=== PATIENT | female | born 1990 | race Caucasian/White ===

== ENCOUNTER → 2017-07-13 | Outpatient (CLI) | payer BC ==
[~2017-07-13] MED LIST: ACET325T38 PO; AMOX500C2 PO; CALC-656 PO; CALC-867 PO; CALC500T7 PO; CEFD300C3 PO; CYCL5TAB PO; DCS100C PO; DOCU100C37 PO; FERR-84 PO; FERR240T9 PO; HYDR-34 PO; IBP800T PO; IBUP-1780 PO; LVT.025T PO; NAPR-243 PO; NITR-65 PO; NITR100C44 PO; OMEP-10 PO; ONDA-42 SL; OXYC-465 PO; OXYC1TAB12 PO; PEDI1TAB29 PO; PNV#1COM11 PO; PREN-148 PO; SULF1TAB38 PO; TRM50T PO; [UNRECOGNIZED DRUG - OTHER] PO; birth control
[2017-07-13 16:17] LABS: BASOPHILS % (AUTO) 0 % (0-10); EOSINOPHILS # (AUTO) 0.5 10^3/uL (0.0-0.3); EOSINOPHILS % (AUTO) 6 % (0-10); LYMPHOCYTES # (AUTO) 1.8 X 10^3 (1.0-4.0); LYMPHOCYTES % (AUTO) 19 % (12-44); MEAN CORPUSCULAR HEMOGLOBIN 26 PG (25-34); MEAN CORPUSCULAR HGB CONC 33 G/DL (32-36); MEAN CORPUSCULAR VOLUME 81 FL (80-99); MEAN PLATELET VOLUME 10.7 FL (7.4-10.4); MONOCYTES # (AUTO) 0.5 X 10^3 (0.0-1.0); MONOCYTES % (AUTO) 5 % (0-12); NEUTROPHILS # (AUTO) 6.6 X 10^3 (1.8-7.8); NEUTROPHILS % (AUTO) 71 % (42-75); PLATELET COUNT 278 10^3/uL (130-400); RED BLOOD COUNT 5.03 10^6/uL (4.35-5.85); RED CELL DISTRIBUTION WIDTH 14.4 % (10.0-14.5); WHITE BLOOD COUNT 9.4 10^3/uL (4.3-11.0)
[2017-07-13 16:38] LABS: ERYTHROCYTE SEDIMENTATION RATE 10 MM/HR (0-20)
[2017-07-13 16:39] LABS: ALANINE AMINOTRANSFERASE 16 U/L (0-55); ANION GAP 8 MMOL/L (5-14); ASPARTATE AMINO TRANSFERASE 13 U/L (5-34); BILIRUBIN,TOTAL 0.4 MG/DL (0.1-1.0); BLOOD UREA NITROGEN 11 MG/DL (7-18); BUN/CREATININE RATIO 15; CALCIUM 9.1 MG/DL (8.5-10.1); CARBON DIOXIDE 23 MMOL/L (21-32); CHLORIDE 105 MMOL/L (98-107); CREATININE SERUM 0.73 MG/DL (0.60-1.30); GFR ESTIMATED > 60; GLUCOSE 117 MG/DL (70-105); POTASSIUM 3.7 MMOL/L (3.6-5.0); SODIUM 136 MMOL/L (135-145); TOTAL PROTEIN 7.4 GM/DL (6.4-8.2)
[2017-07-13 17:00] LABS: THYROID STIMULATING HORMONE 2.46 UIU/ML (0.35-4.94)
[2017-07-15 08:07] LABS: FOLLICLE STIMULATING HORMONE 2.9 mIU/mL
== END ==
LOC: LAB 15:54
PROVIDERS: ATTEND Internal Medicine
DX: R53.83 Other fatigue (principal); D64.9 Anemia, unspecified; R73.9 Hyperglycemia, unspecified; N91.2 Amenorrhea, unspecified; E03.9 Hypothyroidism, unspecified
CPT/HCPCS: 36415; 80053; 82672; 82728; 83001; 83540; 84439; 84443; 84703; 85025; 85652

== ENCOUNTER → 2017-07-23 | Outpatient (CLI) | payer BC | LOC: LAB 07:37 | PROVIDERS: ATTEND Internal Medicine | DX: R73.9 Hyperglycemia, unspecified (principal) | CPT/HCPCS: 36415; 83036 ==

== ENCOUNTER 2017-10-26 13:00 | Outpatient (CLI) | payer BC ==
[~2017-10-26] VITALS: Ht 160 cm; Wt 84.9 kg
== END 2017-10-26 13:34 ==
LOC: PREOP 13:00
PROVIDERS: ATTEND Obstetrics & Gynecology
DX: Z01.818 Encounter for other preprocedural examination (principal); N93.8 Other specified abnormal uterine and vaginal bleeding; N85.9 Noninflammatory disorder of uterus, unspecified; N87.0 Mild cervical dysplasia; D64.9 Anemia, unspecified

== ENCOUNTER 2017-10-28 10:59 | Day surgery (SDC) | payer BC ==
[~2017-10-28] VITALS: Ht 160 cm; Wt 84.9 kg
--- OUTSIDE RECORDS SUMMARY | 2017-10-28 11:06 | XMS REPORT | Continuity of Care Document ---
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 Date/Time Discharge Status Pt. Type Provider Facility Loc./Unit Complaint [id number] 10/21/2017 05:28:00 10/21/2017 23:59:59 CLS Outpatient SARITA TOLBERT, NOMAN [facility] PREOP DUB,UTERINE MASS [id number] 08/06/2017 10:20:00 08/06/2017 23:59:59 CLS Outpatient MIKE KASEY ORTIZ [facility] RAD M63.20 BREAST MASS [id number] 07/23/2017 07:37:00 07/23/2017 23:59:59 CLS Outpatient CEE ORTIZ KASEY [facility] LAB R73.9 [id number] 07/13/2017 15:54:00 07/13/2017 23:59:59 CLS Outpatient MIKE KASEY [facility] LAB R53.83,D64.9,R73.9,N91.2, E03.9 [id number] 09/10/2016 05:30:00 09/12/2016 12:30:00 DIS Inpatient NOMAN STEIN MD [facility] LDRP ABDOMINAL PAIN, BACK LABOR [id number] 09/04/2016 23:19:00 09/05/2016 15:45:00 DIS Outpatient NOMAN STEIN MD [facility] WSo CONTRACTIONS [id number] 09/04/2016 11:09:00 09/04/2016 23:59:59 CLS Outpatient NOMAN STEIN MD [facility] LABT MILD TO MODERATE PREECLAMPSIA,THIRD TRIMESTER [id number] 09/01/2016 01:15:00 09/01/2016 04:33:00 DIS Outpatient NOMAN STEIN MD [facility] WSo AB PAIN [id number] 08/28/2016 14:06:00 08/28/2016 23:59:59 CLS Outpatient NOMAN STEIN MD [facility] LABNPT OTHER ABNORMAL FINDINGS ON SCREENING [id number] 07/20/2016 22:12:00 07/21/2016 10:12:00 DIS Outpatient NOMAN STEIN MD [facility] STOMACH PAIN [id number] 06/09/2016 14:45:00 06/09/2016 15:33:00 DIS Outpatient NOMAN STEIN MD [facility] ABDOMINAL PAIN [id number] 03/25/2016 13:02:00 03/25/2016 17:35:00 DIS Outpatient NOMAN STEIN MD [facility] WSo IV HYDRATION [id number] 06/01/2015 21:11:00 06/02/2015 06:57:00 DIS Outpatient SUSHANT TAYLOR APRN [facility] SLEEP OBSTRUCTIVE SLEEP APNEA [id number] 05/07/2015 13:37:00 05/07/2015 14:10:00 DIS Outpatient RENÉ CARBONE SIGNAL APPRENTICE [facility] SLEEP OBSERVED APNEA, SNORING, EDS [id number] 04/19/2015 16:13:00 04/22/2015 18:20:00 DIS Inpatient NOMAN STEIN MD [facility] LD PREECLAMPSIA,C- SECTION [id number] 04/16/2015 16:50:00 04/16/2015 23:59:59 CLS Outpatient NOMAN STEIN MD [facility] LABNPT MILD OR UNSPECIFIED PRE-CLAMPSIA [id number] 04/09/2015 13:50:00 04/09/2015 17:45:00 DIS Outpatient NOMAN STEIN MD [facility] C/O IBARRA,SWELLING [id number] 03/12/2015 20:48:00 03/13/2015 08:42:00 DIS Inpatient NOMAN STEIN MD [facility] LDRP CONTRACTIONS [id number] 02/07/2015 16:49:00 02/07/2015 18:12:00 DIS Outpatient NOMAN STEIN MD [facility] WSo C/O ABD PAIN [id number] 09/19/2014 18:13:00 09/19/2014 20:24:00 DIS Emergency PAULA MULLEN DO [facility] ER VOMITING, PAIN AT 5 WEEKS [id number] 04/06/2013 22:13:00 04/07/2013 02:33:00 DIS Emergency PAULA MULLEN DO [facility] ER R LEG LAC [id number] 10/28/2017 13:00:00 SIMI STEIN MD, NOMAN [facility] DUB,UTERINE MASS [id number] 09/17/2016 08:48:00 Document Registration [id number] 09/17/2016 08:48:00 Document Registration [id number] 09/17/2016 08:48:00 Document Registration [id number] 09/17/2016 08:48:00 Document Registration [id number] 09/17/2016 08:48:00 Document Registration [id number] 11/12/2012 10:58:00 Document Registration [id number] 11/10/2012 08:22:00 Document Registration [id number] 10/29/2012 17:15:00 Document Registration [id number] 08/18/2010 02:01:00 Document Registration [id number] 05/21/2010 15:59:00 Document Registration [id number] 08/01/2009 10:09:00 Document Registration
[2017-10-28 11:10] VITALS: BP 127/90
[2017-10-28] MEDS ORDERED: LACTATED RINGERS 1,000 ML IV PRN ×2 (11:12→11:15)
[2017-10-28] MEDS ORDERED: NS IV ONE (11:15)
[2017-10-28] MEDS ORDERED: CEFAZOLIN IV ONE (11:15)
[2017-10-28] MEDS ORDERED: SEVOFLURANE (ULTANE) 15 ML INHAL SOLN ONE ×5 (11:45→14:07)
[2017-10-28] MEDS ORDERED: LACTATED RINGERS 1,000 ML IV ONE (11:45)
[2017-10-28] MEDS ORDERED: LIDOCAINE PF 2% 5 ML (XYLOCAINE) VIAL ONE (11:45)
[2017-10-28] MEDS ORDERED: proPOfol 200 MG/20 ML (DIPRIVAN) VIAL IV ONE (11:45)
[2017-10-28] MEDS ORDERED: HURRICAINE EXT TUBE (BENZOCAINE) ONE (11:45)
[2017-10-28] MEDS ORDERED: DEXAMETHASONE 10 MG/ML (DECADRON) 1 ML VIAL ONE (11:45)
[2017-10-28] MEDS ORDERED: fentaNYL INJECTION 100 MCG/2 ML AMP ONE ×2 (11:46→12:43)
[2017-10-28] MEDS ORDERED: MIDAZOLAM 2 MG/2 ML (VERSED) VIAL ONE (11:46)
[2017-10-28] MEDS ORDERED: ATRACURIUM 50 MG/5 ML (TRACRIUM) IV ONE ×2 (11:55→13:40)
[2017-10-28] MEDS ORDERED: MIDAZOLAM 2 MG/2 ML (VERSED) VIAL IV ONE (12:00)
[2017-10-28 12:08] LABS: BASOPHILS % (AUTO) 1 % (0-10); EOSINOPHILS # (AUTO) 0.4 10^3/uL (0.0-0.3); EOSINOPHILS % (AUTO) 7 % (0-10); HEMATOCRIT 38 % (35-52); HEMOGLOBIN 13.1 G/DL (11.5-16.0); LYMPHOCYTES # (AUTO) 1.5 X 10^3 (1.0-4.0); LYMPHOCYTES % (AUTO) 27 % (12-44); MEAN CORPUSCULAR HEMOGLOBIN 28 PG (25-34); MEAN CORPUSCULAR HGB CONC 34 G/DL (32-36); MEAN CORPUSCULAR VOLUME 81 FL (80-99); MEAN PLATELET VOLUME 10.5 FL (7.4-10.4); MONOCYTES # (AUTO) 0.3 X 10^3 (0.0-1.0); MONOCYTES % (AUTO) 5 % (0-12); NEUTROPHILS # (AUTO) 3.4 X 10^3 (1.8-7.8); NEUTROPHILS % (AUTO) 61 % (42-75); PLATELET COUNT 253 10^3/uL (130-400); RED BLOOD COUNT 4.69 10^6/uL (4.35-5.85); RED CELL DISTRIBUTION WIDTH 13.3 % (10.0-14.5); WHITE BLOOD COUNT 5.6 10^3/uL (4.3-11.0)
[2017-10-28] MEDS ORDERED: BUPIVACAINE 0.25% 30 ML (SENSORCAINE) VIAL ONE (12:15)
--- NOTE | 2017-10-28 12:26 | Progress Note-Pre Operative ---
Pre-Operative Progress Note H&P Reviewed The H&P was reviewed, patient examined and no changes noted. Date Seen by Provider: Oct 28, 2017 Time Seen by Provider: 12:26 Date H&P Reviewed: Oct 28, 2017 Time H&P Reviewed: 12:26 Pre-Operative Diagnosis: dysfunctional uterine bleeding/menorrhagia/mass/JOSE G-1 NOMAN STEIN MD Oct 28, 2017 12:26 pm
[2017-10-28] MEDS ORDERED: D5 LR IV SOLUTION 1,000 ML IV SCH (12:27)
--- NOTE | 2017-10-28 12:27 | Progress Note-Post Operative ---
Post-Operative Progess Note Surgeon (s)/Sole Sewer Hand (s) Surgeon NOMAN STEIN MD Sole Sewer Hand: Maren Ceja Pre-Operative Diagnosis dysfunctional uterine bleeding/menorrhagia/mass/JOSE G-1 Post-Operative Diagnosis same with pathology pending Procedure & Operative Findings Date of Procedure 10/28/17 Procedure Performed/Findings T LH with bilateral salpingectomies Anesthesia Type GETA Estimated Blood Loss Estimated blood loss (mL): minimal Specimens/Packing Specimens Removed uterus with the fallopian tubes Packing: NOMAN Severino MD Oct 28, 2017 12:27
[2017-10-28] MEDS ORDERED: KETOROLAC 30 MG/ML VIAL IVP SCH (12:30)
[2017-10-28] MEDS ORDERED: MEPERIDINE (DEMEROL) INJ 100 MG/ML IM PRN (12:30)
[2017-10-28] MEDS ORDERED: IBUP-1780 PO (12:30)
[2017-10-28] MEDS ORDERED: OXYC-465 PO (12:30)
[2017-10-28] MEDS ORDERED: ONDANSETRON 4 MG/2 ML (SDV) Z0FRAN IVP PRN ×2 (12:30→14:30)
[2017-10-28] MEDS ORDERED: PROMETHAZINE INJ 25 MG/ML (PHENERGAN) AMP IM PRN (12:30)
[2017-10-28] MEDS ORDERED: DOCU-143 PO (12:30)
[2017-10-28] MEDS ORDERED: BENZOCAINE/MENTHOL (DERMOPLAST) 56 ML CAN TP PRN (12:30)
--- NOTE | 2017-10-28 12:33 | Discharge Instructions ---
Discharge Instructions Discharge Medications New, Converted or Re-Newed RX: RX on Chart Patient Instructions Patient Instructions: as directed Return to The Hospital For: as directed Activity & Diet Discharge Diet: No Restrictions Activity as Tolerated: No Orders-Post D/C & Referrals Follow Up Appt: return to clinic ThursdayOctober 30, 2017 at 930 a.m. for staple removal Call to make follow up appt. for patient in 4 weeks. Activity: Rest for 24 hours, than as tolerated. Wound Care: May remove Band-Aid tomorrow. Replace as desired. Keep incisions clean and dry. Wash daily with soap and water. Please call in RX to patient pharmacy. Diet: As tolerated-Clear Liquids only if nauseated. Tomorrow, may shower or tub bathe as desired. No driving for 24 hours, no alcoholic beverages for 24 hours, and nothing per vagina (no tampons, douching, or intercourse) for 8 weeks. Patient to return to the clinic as soon as possible for: Temperature greater than 101F, Severe Pain, Foul discharge from incision or vagina, Excessive Bleeding (more than a period). NOMAN STEIN MD Oct 28, 2017 12:33 pm
[2017-10-28] MEDS: morphine INJ 10 MG/ML 1ML (SYR OR VIAL) IVP PRN ×2 (14:05→14:15)
[2017-10-28] MEDS ORDERED: KETOROLAC 30 MG/ML VIAL ONE (14:05)
[2017-10-28] MEDS ORDERED: NEOSTIGMINE (BLOXIVERZ ) 1 MG/1ML 10 ML VIAL ONE (14:07)
[2017-10-28] MEDS ORDERED: WATER (STERILE) FOR INJECTION 0 ML ONE (14:07)
[2017-10-28] MEDS ORDERED: ESTROGENS CONJ IV 25 MG/5 ML (PREMARIN) VIAL ONE (14:07)
[2017-10-28] MEDS ORDERED: GLYCOPYRROLATE 0.2 MG/ML (ROBINUL) 2 ML VIAL ONE (14:07)
[2017-10-28] MEDS ORDERED: HYDROmorphone (DILAUDID) 2 MG/ML VIAL IVP PRN (14:30)
[2017-10-28 15:00] VITALS: BP 113/72
[2017-10-28 17:10] VITALS: BP 104/72
[2017-10-28] MEDS: oxyCODONE/APAP 10/325MG (PERCOCET 10) TABLET PO PRN ×2 (17:40→22:55)
[2017-10-28 20:00] VITALS: BP 116/79
[2017-10-28] MEDS: KETOROLAC 30 MG/ML VIAL IVP SCH (20:28)
--- NOTE | 2017-10-28 23:29 | OPERATIVE REPORT ---
DATE OF SERVICE: 10/28/2017 PREOPERATIVE DIAGNOSES: Dysfunctional uterine bleeding, intrauterine mass and history of recurrent cervical intraepithelial neoplasia 1. POSTOPERATIVE DIAGNOSES: Dysfunctional uterine bleeding, intrauterine mass and history of recurrent cervical intraepithelial neoplasia 1. OPERATIVE PROCEDURE: Total laparoscopic hysterectomy with bilateral salpingectomies. OPERATIVE DESCRIPTION: With the patient in the supine position under satisfactory general anesthesia, she was repositioned in dorsal lithotomy position in the [facility] and prepped and draped in the usual fashion for abdominal and vaginal surgery. Weighted speculum placed in the posterior fornix of the vagina. Cervix exposed and grasped anteriorly with single tooth tenaculum. The uterus was sounded to 11 cm with a uterine sound. The cervix was then serially dilated with Neil dilators to accommodate a Leia II manipulator, which was placed using a 6 mm x 8 cm uterine probe and a 30 mm colpotomy ring. Sutures of #1 Vicryl were placed at 3 o'clock and 9 o'clock positions of the cervix to affix the specimen to the manipulator. Rosario catheter was placed in the urinary bladder at this point. The patient was brought in low dorsal lithotomy position. A 12 mm incision was made 2.5 to 3 cm superior to the umbilicus. Veress needle was placed through that incision. Correct placement confirmed with the water drop test and the abdomen was insufflated with 2.4 liters of carbon dioxide. The Veress needle was removed and a 12 mm Optiview laparoscopic port placed and then under direct vision, ports of 8 mm were placed through incisions, a 9 size cm lateral to the umbilicus on each side at the level of the umbilicus. The patient was placed in Trendelenburg allowing the bowel to spill out of the pelvis. The uterus was examined and it was quite mottled in appearance consistent with adenomyosis. Both fallopian tubes showed evidence of remote tubal sterilization. The ovaries were normal with a follicular/corpus luteal cyst on the right ovary. The appendix was identified. It was a normal vermiform appendix. Laparoscope was brought back to the pelvis, the decision was made to proceed with the intended procedure being total laparoscopic hysterectomy with bilateral salpingectomies. The right fallopian tube was grasped and elevated. The mesosalpinx was clamped, cauterized and divided with the vessel sealer. This was continued stepwise over to the uteroovarian pedicle which was then clamped, cauterized and divided, including division of the round ligament and then down the broad ligament and then the cardinal ligament on the right. Same procedure was performed on the left, allowing for conservation both ovaries and removal of both fallopian tubes. The vessel sealer was now replaced with a monopolar shear. The anterior lower uterine segment was exposed. The bladder was carefully dissected down off the lower uterine segment. The patient had two C-sections, but the bladder was clear of the scar. With the bladder down off the cervix and the anterior vaginal wall exposed at the junction with the cervix, a colpotomy incision was started at 12:00 position onto the colpotomy ring. That incision was continued circumferentially until the entire colpotomy ring was exposed and the uterus with the tubes still attached on both sides was extracted through the vagina. The vaginal cuff was closed with a running suture of V-Loc sreedhar suture starting from the right side of the pelvis and using that suture initially to support the ovary from the pedicle of the round ligament and then the closure was continued across the pedicle of the cardinal ligament and then the vaginal cuff itself was closed starting across the angle to the midportion of the cuff. A second suture was used to start from the left angle on both sides and ensuring inclusion of the uterine vessel pedicles in the closure. The vaginal cuff was closed completely with good reapproximation and good hemostasis. The pelvis was examined for hemostasis. That being complete with no abnormal pathology, the procedure was terminated. The operative instruments were removed under direct vision as were the ports. The abdomen was evacuated insufflating gas in the process of removing the ports. The patient was uneventfully awakened from her general anesthesia and transferred to the recovery room in stable condition after closing the skin incisions with randi and the fascia at the umbilical incision with a [id number] suture of #2-0 Vicryl. The vagina had been examined by replacing the speculum inside and seen that the vaginal cuff was completely reapproximated and completely hemostatic. Sponge and needle counts were correct at the end of the procedure. Estimated blood loss was minimal. The patient tolerated the procedure well. Job ID: [id number] DocumentID: [id number] Dictated Date: 10/28/2017 13:51:55 Sql Analyst Date: 10/28/2017 23:28:25 Dictated By: NOMAN STEIN MD
[2017-10-29 00:30] VITALS: BP 113/64
[2017-10-29] MEDS: KETOROLAC 30 MG/ML VIAL IVP SCH ×2 (02:10→09:09)
[2017-10-29 04:50] VITALS: BP 96/58
--- NOTE | 2017-10-29 07:50 | Progress Note-Standard ---
Standard Progress Note Progress Notes/Assess & Plan Date Seen by Provider: Oct 29, 2017 Time Seen by Provider: 07:49 Progress/Assessment & Plan this patient is without complaint. She is ambulating, voiding, tolerating by mouth well, has good pain control. Patient denies chest pain, denies shortness of breath, denies nausea vomiting, denies headache. Patient is requesting discharge home. Vital Signs Date Time Temp Pulse Resp B/P (MAP) Pulse Ox O2 Delivery O2 Flow Rate FiO2 10/29/17 04:50 98.0 61 16 96/58 (71) 97 10/29/17 00:30 99.0 90 18 113/64 (80) 95 10/28/17 20:00 98.2 92 18 116/79 (91) 97 Room Air 10/28/17 17:10 99.4 81 18 104/72 (83) 100 Room Air 10/28/17 15:00 96.8 62 16 113/72 (86) 100 Room Air 10/28/17 11:10 98.1 79 18 127/90 (102) 97 I & O 10/29/17 07:00 Intake Total 1050 ml Output Total 750 ml Balance 300 ml vital signs are stable. Patient is afebrile. Abdomen is benign. Bowel sounds are present in all 4 quadrants. Extremities show clubbing cyanosis. There is no Homans sign. Assessment and plan postoperative day number 1 doing well plan is for discharge home with follow-up in clinic Final Diagnosis dysfunctional uterine bleeding/JOSE G-1 NOMAN STEIN MD Oct 29, 2017 7:50 am
[2017-10-29 08:04] VITALS: BP 99/62
[2017-10-29] MEDS ORDERED: DOCUSATE SODIUM 100 MG (COLACE) CAP PO SCH (09:00)
[2017-10-29 12:15] VITALS: BP 127/83
[2017-10-29] MEDS: oxyCODONE/APAP 10/325MG (PERCOCET 10) TABLET PO PRN (12:46)
--- NOTE | 2017-10-29 13:07 | Anesthesia-General Post-Op ---
General Patient Condition Mental Status/LOC: Same as Preop Cardiovascular: Satisfactory Nausea/Vomiting: Absent Respiratory: Satisfactory Pain: Controlled Complications: Absent Post Op Complications Complications None Follow Up Care/Instructions Patient Instructions None needed. Anesthesia/Patient Condition Patient Condition Patient is doing well, no complaints, stable vital signs, no apparent adverse anesthesia problems. No complications reported per nursing. D/C home per [facility] Criteria: No HIMANSHU MARTÍNEZ CRNA Oct 29, 2017 13:07
[2017-10-29] MEDS ORDERED: IBUPROFEN 800 MG (MOTRIN) TAB PO SCH (14:00)
== END 2017-10-29 13:20 | disposition home or self-care (01) ==
LOC: SDC 10:59 → WS 15:00 → SDC 10-29 13:20
PROVIDERS: ATTEND Obstetrics & Gynecology
DX: N83.8 Other noninflammatory disorders of ovary, fallopian tube and broad ligament (principal); N72 Inflammatory disease of cervix uteri; Z11.2 Encounter for screening for other bacterial diseases; F17.210 Nicotine dependence, cigarettes, uncomplicated; F32.9 Major depressive disorder, single episode, unspecified; F41.9 Anxiety disorder, unspecified; Z88.5 Allergy status to narcotic agent
CPT/HCPCS: 36415; 84703; 85025; 86850; 86900; 86901; 87081

== ENCOUNTER → 2020-01-24 | Outpatient (CLI) | payer MEDICAID ==
[~2020-01-24] MED LIST changes: +DOCU-143 PO
[2020-01-24 10:09] LABS: ALANINE AMINOTRANSFERASE 16 U/L (0-55); ALKALINE PHOSPHATASE 65 U/L (40-136); BILIRUBIN,TOTAL 0.4 MG/DL (0.1-1.0); BUN/CREATININE RATIO 13; CARBON DIOXIDE 23 MMOL/L (21-32); CHLORIDE 108 MMOL/L (98-107); GFR ESTIMATED > 60; GLUCOSE 87 MG/DL (70-105); POTASSIUM 3.9 MMOL/L (3.6-5.0); SODIUM 140 MMOL/L (135-145)
== END ==
LOC: LAB 09:37
PROVIDERS: ATTEND Family Medicine
DX: Z13.1 Encounter for screening for diabetes mellitus (principal)
CPT/HCPCS: 36415; 80053; 83036

== ENCOUNTER 2020-04-27 21:15 | Emergency (ER) | payer MEDICAID ==
[~2020-04-27] VITALS: Ht 160 cm; Wt 86.2 kg
[2020-04-27] MEDS ORDERED: IBUPROFEN 800 MG (MOTRIN) TAB PO ONE (21:30)
[2020-04-27] MEDS ORDERED: ONDANSETRON 4 MG/5 ML ORAL SOLN (ZOFRAN) 5 ML PO ONE (21:30)
[2020-04-27] MEDS ORDERED: ACETAMINOPHEN 500 MG TAB (TYLENOL) PO ONE (21:30)
[2020-04-27] MEDS ORDERED: ONDA8TAB13 PO (21:37)
--- NOTE | 2020-04-27 21:37 | ED Head Injury ---
General Chief Complaint: Trauma-Non Activation Stated Complaint: FELL HIT HEAD Source: patient Exam Limitations: no limitations History of Present Illness Date Seen by Provider: Apr 27, 2020 Time Seen by Provider: 21:31 Initial Comments Fell out of a swing 1/2 hour prior to arrival and hit her head. Positive LOC. c/o headache/nausea. Specifically denies any pain anywhere other than her head. She denies neck pain. Occurred: just prior to arrival Severity: moderate Associated Systoms: Headaches, Nausea/Vomiting Allergies and Home Medications Allergies Coded Allergies: codeine (Verified Adverse Reaction, Severe, VOMITTING, RESP DISTRESS, 10/26/17) lidocaine (Unverified Adverse Reaction, Unknown, nausea, dizziness, tunnel vision, 03/12/15) Home Medications Docusate Sodium 100 Mg Capsule, 100 MG PO BID Prescribed by: NOMAN MATA on 10/28/17 1230 Ibuprofen 800 Mg Tablet, 800 MG PO Q6H PRN for PAIN Prescribed by: NOMAN MATA on 10/28/17 1230 Ondansetron 8 Mg Tab.rapdis, 8 MG PO Q6H PRN for NAUSEA/VOMITING Prescribed by: ENRIQUE ADAMS on 04/27/20 2137 Oxycodone HCl/Acetaminophen 1 Each Tablet, 1-2 TAB PO Q4H PRN for PAIN Prescribed by: NOMAN MATA on 10/28/17 1230 Patient Home Medication List Home Medication List Reviewed: Yes Review of Systems Review of Systems Constitutional: see HPI Eyes: No Symptoms Reported Ears, Nose, Mouth, Throat: no symptoms reported Respiratory: no symptoms reported Cardiovascular: no symptoms reported Gastrointestinal: nausea, vomiting Genitourinary: no symptoms reported Musculoskeletal: no symptoms reported Skin: no symptoms reported Psychiatric/Neurological: Headache Endocrine: No Symptoms Reported Past Mbabtek-Zvgyma-Xpdcqu Hx Patient Social History Type Used: Cigarettes Former Smoker, Quit: Nov 27, 2015 Recent Foreign Travel: No Contact w/Someone Who Travel: No Recent Hopitalizations: No Immunizations Up To Date Tetanus Booster (TDap): Unknown Seasonal Allergies Seasonal Allergies: No Past Medical History Section, Tonsillectomy, Tubal Ligation Asthma, Pneumonia Reproductive Disorders: Yes (DUB, UTERINE MASS , JOSE G I) Female Reproductive Disorders: Menstrual Problems, Endometriosis, Ovarian Cyst 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: Tubal 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 Sexually Transmitted Disease: No HIV/AIDS: No Hypothyroidsim Chronic Ear Infection Loss of Vision: Bilateral Hearing Impairment: Hard of Hearing Anxiety, Depression Adverse Reaction/Blood Tranf: No (N/A) Family Medical History Arthritis Grandparents (Maternal Grandmother Paternal Grandfather) Asthma Grandparents (Paternal Grandmother) Bone cancer Grandparents (Maternal Grandfather) Cardiovascular disease 19 MOTHER (Heart valve that flows both ways.) Grandparents (Maternal Grandfather-Heart valve that flows both ways.) Cataracts Grandparents (Maternal Grandmother) Gammoglubulin anemia Grandparents (Maternal Grandmother) Gastroenteritis Grandparents (Maternal Grandmother) Glaucoma Grandparents (Maternal Grandmother) Headache disorder 19 MOTHER (Migraines) Myocardial infarction Grandparents (Maternal Grandfather) Parkinson's disease Grandparents (Paternal Grandmother) Psychosocial problem 19 MOTHER (Anxiety) Grandparents (Paternal Grandmother-Anxiety) Respiratory disorder Grandparents (Paternal Grandmother) Thyroid disease 19 MOTHER (Hypothyroid) No Family History of: AIDS Abdominal aortic aneurysm [place]'s disease Alcoholism Alzheimer's disease Aphasia Cancer of mouth Colon cancer Completed stroke Congenital disease Congenital heart disease Coronary thrombosis Cystic fibrosis Deafness or hearing loss Dementia Diabetes mellitus Drug abuse Dysphasia Fibrocystic disease of breast Hypercholesterolemia Hypertension Infertility Kidney disease Neoplasm Not obtainable due to adoption Osteoporosis Prostate cancer Seizure disorder Severe allergy Tuberculosis Visual disorder Physical Exam Vital Signs Vital Signs - First Documented 04/27/20 21:25 Temp 36.6 Pulse 100 Resp 18 B/P (MAP) 121/93 (102) Pulse Ox 98 O2 Delivery Room Air Capillary Refill : Height, Weight, BMI Height: 5'3.00" Weight: 187lbs. 2.0oz. 84.203289zm; 33.2 BMI Method:Stated General Appearance: WD/WN, no apparent distress HEENT: PERRL/EOMI, normal ENT inspection, TMs normal, other (no veloz sign or hemotympanum. PERRLA. ) Neck: non-tender, full range of motion, supple; No tender lateral, No tender midline Respiratory: no respiratory distress, no accessory muscle use Gastrointestinal: normal bowel sounds, non tender Extremities: normal range of motion, non-tender Psychiatric: alert, oriented x 3 Crainal Nerves: normal hearing, normal speech Motor/Sensory: no motor deficit, no sensory deficit Skin: normal color, warm/dry [place] Coma Score Best Eye Response: (4) Open Spontaneously Best Verbal Response: (5) Oriented Best Motor Response: (6) Obeys Commands [place] Total: 15 Progress/Results/Core Measures Results/Orders My Orders Orders - ENRIQUE ADAMS APRN Ondansetron Oral Solution (Zofran Oral S (04/27/20 21:30) Acetaminophen Tablet (Tylenol Tablet) (04/27/20 21:30) Ibuprofen Tablet (Motrin Tablet) (04/27/20 21:30) Ct Head/Cervical Spine Wo (04/27/20 21:30) Ondansetron Oral Dissolve Tab (Zofran (04/27/20 21:47) Ondansetron Oral Dissolve Tab (Zofran (04/27/20 21:45) Medications Given in ED Current Medications Medications Dose Ordered Sig/Анна Route Start Time Stop Time Status Last Admin Dose Admin Acetaminophen 1,000 mg ONCE ONCE PO 04/27/20 21:30 04/27/20 21:31 DC 04/27/20 21:52 1,000 MG Ibuprofen 800 mg ONCE ONCE PO 04/27/20 21:30 04/27/20 21:31 DC 04/27/20 21:52 800 MG Vital Signs/I&O 04/27/20 21:25 Temp 36.6 Pulse 100 Resp 18 B/P (MAP) 121/93 (102) Pulse Ox 98 O2 Delivery Room Air Departure Impression Primary Impression: Concussion Qualified Codes: S06.0X1A - Concussion with loss of consciousness of 30 minutes or less, initial encounter Disposition: 01 HOME, SELF-CARE Condition: Stable Departure-Patient Inst. Decision time for Depature: 21:36 Referrals: SHIRLEY KLEIN MD (PCP/Family) Primary Care Physician Patient Instructions: Concussion, Adult (DC) Add. Discharge Instructions: 1. return to er for any concerns 2. Tylenol and motrin for headache which may persist for a few days. Try to limit mentall stimulating activities such as cell phone use, ipad/computer use, TV, reading for the first few days until symptoms improve. Use nausea medication as directed . All discharge instructions reviewed with patient and/or family. Voiced understanding. Scripts Ondansetron (Ondansetron Odt) 8 Mg Tab.rapdis 8 MG PO Q6H PRN for NAUSEA/VOMITING, #14 TAB Prov: ENRIQUE ADAMS APRN 04/27/20 Work/School Note: Work Release Form Date Seen in the Emergency Department: Apr 27, 2020 Return to Work: Apr 30, 2020 ENRIQUE ADAMS APRN Apr 27, 2020 21:37
[2020-04-27] MEDS ORDERED: ONDANSETRON 4 MG (ZOFRAN) ORAL DISSOLVE TAB ONE (21:45)
[2020-04-27] MEDS ORDERED: ONDANSETRON 4 MG (ZOFRAN) ORAL DISSOLVE TAB PO STA (21:47)
--- NOTE | 2020-04-27 22:06 | Diagnostic Imaging Report ---
INDICATION: Fall with injury and head and neck pain. TECHNIQUE: Multiple contiguous axial images were obtained through the brain and cervical spine without the use of intravenous contrast. Sagittal and coronal reformations through the cervical spine were then performed. Auto Exposure Controls were utilized during the CT exam to meet ALARA standards for radiation dose reduction. COMPARISON: There is no prior study for comparison. CT BRAIN FINDINGS: There are no extra-axial fluid collections. No intracranial hemorrhage. No intracranial mass or mass effect. No midline shift. The ventricles are normal in size and position. There are no focal parenchymal abnormalities in the brain. Calvarial windows appear unremarkable. CT CERVICAL SPINE FINDINGS: There is no evidence of cervical spine fracture. There is loss of lordosis with slight change in angulation at C5-C6. This may be positional but ligamentous injury is not entirely excluded. There is no significant disc space narrowing or degenerative change. IMPRESSION: 1. CT brain was unremarkable. 2. CT cervical spine shows no evidence of fracture or subluxation. There is loss of lordosis with slight change in angulation at the C5-C6 level, this may be positional but ligamentous injury is not excluded. Consider follow-up with either MRI or flexion and extension views, if clinical symptoms warrant. Dictated by: Dictated on workstation # [id number]
--- OUTSIDE RECORDS SUMMARY | 2020-04-27 22:11 | XMS REPORT ---
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 [employer] [facility] Moya Okruga [facility] [employer] Address [address] [address] Care Team Providers Care Boat Dispatcher Name Role Phone KASEY MIKE Unavailable Allergies No Information Encounters No Information Medical Equipment No Information Goals No Information Immunizations The data below is from unstructured sources Name Given Type Tetanus Booster (TDap) Unknown Historical Interventions No Information Medications No Information Payers The data below is from unstructured sources Payer Name Policy Number Subscriber Name Relationship [facility] [id number] [place] 05 Step Father [facility] [id number] Olga Borja 01 Self / Same As Patient Plan of Treatment The data below is from unstructured sourcesNo plan of care.No plan of care.No plan of care. Problems The data below is from unstructured sourcesNo Known Problems or Medical conditions. Procedures The data below is from unstructured sourcesNo known history of procedures.No known history of procedures.No known history of procedures. Results The data below is from unstructured sourcesNo Known Relevant Diagnostic Tests, Laboratory Data and/or Discharge Summary. Social History The data below is from unstructured sources History Response Recorde d Date/Time Alcohol Use Occasionally Uses 04/06/13 10:17pm Recreational Drug Use N 04/06/13 10:17pm Recent Foreign Travel N 04/06/13 10:17pm Recent Infectious Disease Exposure N 04/06/13 10:17pm Sexually Transmitted Disease N 04/06/13 10:17pm Vital Signs The data below is from unstructured sources Vital Response Date/Time Temperature (Fahrenheit) 101.2 degre es F (97.6 - 99.5) Temperature (Calculated Celsius) 38. 42689 degrees C (36.4 - 37.5) Temperature Source Temporal Pulse Rate (adult) 117 bpm (60 - 90) Respiratory Rate 18 bpm (12 - 24) O2 Sat by Pulse Oximetry 98 % (88 - 100) Blood Pressure 118/81 mm Hg Pain Pain Intensity 8 Height (Feet) 5 feet Height (Inches) 3 inches Height (Calculated Centimeters) 160. 705020 cm Weight (Pounds) 190 pounds Weight (Calculated Kilograms) 86.182 551 kilograms Calculated BMI 33.65 Vital Response Date/Time Temperature (Fahrenheit) 98.0 degree s F (97.6 - 99.5) Temperature (Calculated Celsius) 36. 77963 degrees C (36.4 - 37.5) Temperature Source Tympanic Pulse Rate (adult) 102 bpm (60 - 90) Respiratory Rate 18 bpm (12 - 24) Blood Pressure 102/74 mm Hg Pain Pain Intensity 5 Height (Feet) 5 feet Height (Inches) 3.00 inches Height (Calculated Centimeters) 160. 202656 cm Weight (Pounds) 213 pounds Weight (Calculated Grams) 25805.176 gm Weight (Calculated Kilograms) 96.615 176 kilograms Calculated BMI 37.73 Functional Status The data below is from unstructured sourcesNo functional status results.No functional status results.No functional status results. Mental Status No Information Advance Directives Directive Response Recor ded Date/Time Advance Directives No 6:36pm Organ Donor Yes 09/19/14 6:36pm Resuscitation Status Full Code 09/19/14 6:36pm Directive Response Recor ded Date/Time Advance Directives No 4:52pm Health Care Power of Birth Attendant No 02/07/15 4:52pm Organ Donor Yes 02/07/15 4:52pm Resuscitation Status Full Code 02/07/15 4:52pm Directive Response Recor ded Date Advance Directives N 07/10 10:17pm Organ Donor Y 04/06/13 1 0:17pm Discharge Instructions No hospital discharge instructions.No hospital discharge instructions. Additional Source Comments This clinical document has been generated using [employer] software that has been certified by the Office of the National Coordinator for Health Information Technology (ONC 15.99.04.3023.Diam.[id number]) and the National Committee for Ordering Machine Operator (NCQA, as an eMeasure certified technology). FOR RECORDS PERTAINING TO PATIENTS WHO ARE OR HAVE BEEN ENROLLED IN A CHEMICAL D EPENDENCY/SUBSTANCE ABUSE PROGRAM, SOME INFORMATION MAY BE OMITTED. This clinica l summary was aggregated from multiple sources. Caution should be exercised in using it in the provision of clinical care. This summary normalizes information from multiple sources, and as a consequence, information in this document may ma terially change the coding, format and clinical context of patient data. In mayelin tion, data may be omitted in some cases. CLINICAL DECISIONS SHOULD BE BASED ON T HE PRIMARY CLINICAL RECORDS. [employer]. [facility]. provides no warranty or guara ntee of the accuracy or completeness of information in this document.The followi ng information is based on time limited clinical information
--- OUTSIDE RECORDS SUMMARY | 2020-04-27 22:11 | XMS REPORT | Continuity of Care Document ---
Author Author Sylvia BROWN Organization [facility] Address Unknown Phone Unavailable Care Team Providers Care Golf Ball Molder Name Role Phone [facility] Unavailable Unavailable Problems No Data Provided for This Section Medications No Data Provided for This Section Allergies, Adverse Reactions, Alerts No Known Medication Allergies Immunizations No Data Provided for This Section Results No Data Provided for This Section Vital Signs No Data Provided for This Section Encounters No Data Provided for This Section Procedures No Data Provided for This Section Social History Combined list of available smoking, tobacco, and other social history on record at Department of Defense and/or Veterans Affairs facilities. The included entrie s comply with the patient's data sharing authorizations. Social History Type Response Date Comment Source This section is an empty social history section. [facility] Assessment and Plan No Data Provided for This Section Plan of Care No Data Provided for This Section Family History No Data Provided for This Section Advance Directives No Data Provided for This Section Functional Status No Data Provided for This Section
--- OUTSIDE RECORDS SUMMARY | 2020-04-27 22:11 | XMS REPORT | Continuity of Care Document ---
Demographics Preferred Language Ukrainian Marital Status Unknown Worship Affiliation Unknown Race Unknown Ethnic Group Unknown Author Author [facility] Address Unknown Phone Unavailable Care Team Providers Care Life Educator Name Role Phone [facility] Unavailable Unavailable Problems Problem Status Onset Date Classification Date Reported Comments Source CELLULITIS AND ABSCESS OF UPPER ARM AND Active 02/06/2014 [facility] PERSONAL HISTORY OF ALLERGY TO NARCOTIC Active 02/06/2014 [facility] INSECT BITE, NONVENOMOUS OF SHOULDER AND Active 02/06/2014 [facility] Medications Medication Details Route Status Patient Instructions Ordering Provider Order Date Source [place] 10 mg-325 mg oral tablet 1 TAB, PO, Q6H (Every 6 hours), PRN Pain, X 7 day, # 28 TAB, 0 Refill(s), Indication: Mild Pain Active RILEY 02/07/2014 [facility] predniSONE 20 mg oral tablet 1 TAB, PO, Daily, # 10 TAB, 0 Refill(s), take 2 daily for 3 days then 1 daily for 3 days, Indication: Inflammationtake 2 daily for 3 days then 1 daily for 3 days Active RILEY 02/07/2014 [facility] Bactrim DS 800 mg-160 mg oral tablet 1 TAB, PO, BID (2 times a day), # 14 TAB, 0 Refill(s), Indication: Bacterial Infection Active RILEY 02/07/2014 [facility] Allergies, Adverse Reactions, Alerts Substance Category Reaction Severity Reaction type Status Date Reported Comments Source codeine drug allergy Allergy Act eun [facility] Immunizations No Data Provided for This Section Results No Data Provided for This Section Pathology Reports No Data Provided for This Section Diagnostic Reports No Data Provided for This Section Consultation Notes Results Value Date Source Emergency Room Record Emergency Room Record Insect bite and/or sting Patient: OLGA OBRJA Age: 23 years Sex: Female : 1990 Associated Diagnoses: None Author: CHRISTOS RILEY DO Basic Information Time seen: Date and time 02/06/2014 21:34. History source: Patient. Arrival mode: , Arrival Mode Wheelchair private vehicle. History limitation: None. Additional information: , Primary Care Physician No Primary Care Physician has been entered Chief Complaint from Nursing Triage Note: 02/06/2014 21:10 Chief Complaint insect bite to rt arm started yesterday . sore throat and runny nose started last night. History of Present Illness The patient presents with an insect bite. The onset was 1 days ago. The course/duration of symptoms is constant. The location where the incident occurred was at home. Location: Right arm. The character of symptoms is itching and redness. The degree of symptoms is moderate. Risk factors consist of none. Prior episodes: none. Therapy today: none. Associated symptoms: none. Additional history: none. Review of Systems Constitutional symptoms: No fever, no chills, no sweats. Skin symptoms: Rash. Eye symptoms: No blindness, ENMT symptoms: No sore throat, no nasal congestion. Respiratory symptoms: No shortness of breath, no cough. Cardiovascular symptoms: No chest pain, Gastrointestinal symptoms: No nausea, no vomiting, no diarrhea. Neurologic symptoms: No headache, Psychiatric symptoms: Negative except as documented in HPI. Endocrine symptoms: Negative except as documented in HPI. Hematologic/Lymphatic symptoms: No swollen nodes, Allergy/immunologic symptoms: Negative except as documented in HPI. Health Status Allergies: . Allergic Reactions (Selected) Severity Not Documented Emergency Room Record Codeine- No reactions were documented. Past Medical/ Family/ Social History Medical history Reviewed as documented in chart. Surgical history: Negative. Family history: Reviewed as documented in chart. Social history: Reviewed as documented in chart. Physical Examination Vital Signs Vital Signs. 02/06/2014 21:10 Temperature 101 DegF HI Temp Method Oral Heart Rate 116 bpm Respiratory Rate 18 br/min Inet NIBP Systolic 119 mmHg Inet NIBP Diastolic 58 mmHg Measurements. 02/06/2014 21:10 Clinical Height 160 cm Height Method Stated Clinical Weight 88.5 kg Weight Method Standing Scale BMI 34.57 Oxygen Saturation. 02/06/2014 21:10 Oxygen Saturation 100 % General: Alert, no acute distress. Skin: Warm, pink, intact, moist, Rash: RT medial bicep , 6 cm circular area of erythema. Head: Normocephalic, atraumatic. Neck: Supple, trachea midline. Eye: Extraocular movements are intact. Ears, nose, mouth and throat: Oral mucosa moist. Cardiovascular: Normal peripheral perfusion. Respiratory: Respirations are non-labored, Symmetrical chest wall expansion. Back: Normal range of motion. Musculoskeletal: Normal ROM, normal strength, no tenderness, no swelling, no deformity. Neurological: Alert and oriented to person, place, time, and situation, normal speech observed. Psychiatric: Cooperative. Impression and Plan Diagnosis 1. Cellulitis RT arm Plan Condition: Improved, Stable. Disposition: Discharged: Time 02/06/2014 21:40, to home. Prescriptions: Discharge Medications Emergency Room Record Bactrim DS 800 mg-160 mg oral tablet: 1 TAB, PO, BID (2 times a day), 14 TAB Ordered by: CHRISTOS RILEY DO - 02/06/2014 21:38 predniSONE 20 mg oral tablet: 1 TAB, PO, Daily, take 2 daily for 3 days then 1 daily for 3 days, 10 TAB Ordered by: CHRISTOS RILEY DO - 02/06/2014 21:39 [place] 10 mg-325 mg oral tablet: 1 TAB, PO, Q6H (Every 6 hours), 28 TAB, PRN: Pain Ordered by: CHRISTOS RILEY DO - 02/06/2014 21:39 . Counseled: Patient, Family, Regarding diagnosis, Regarding treatment plan, Regarding prescription, Patient indicated understanding of instructions. Notes: Scribed by: Kody Lawrence for Dr. Cuate Riley. [Electronically Signed By:] DO CHRISTOS RILEY DO On, 02/06/2014 10:23 PM 02/06/2014 [facility] Discharge Summaries No Data Provided for This Section History and Physicals No Data Provided for This Section Vital Signs Vital Sign Value Date Comments Source Inet NIBP Diastolic 85 mm[Hg] 02/07/2014 [facility] Inet NIBP Systolic 116 mm[Hg] 02/07/2014 [facility] Respiratory Rate 18 br/min 02/07/2014 [facility] Heart Rate 116 bpm 02/07/2014 [facility] Temp Method Oral (02/06/2014 2 1:10:00) [facility] 101 [degF] [facility] Location Location Details Encounter Type Encounter Number Reason For Visit Attending Provider ADM Date DC Date Status Source [facility] E [id number] EUG RENNY RILEY DO 02/06/2014 02/06/2014 [facility] Procedures No Data Provided for This Section Plan of Care No Data Provided for This Section Social History No Data Provided for This Section Assessment and Plan No Data Provided for This Section Family History No Data Provided for This Section Advance Directives No Data Provided for This Section Functional Status No Data Provided for This Section
--- NOTE | 2020-04-27 22:14 | NUR ---
Contacted Flor Haines, per pt request, regarding findings et care recieved while in ED. Flor voices no further questions or concerns. ([phone])
[2020-04-27 22:20] VITALS: BP 116/84
== END 2020-04-27 22:20 | disposition home or self-care (01) ==
LOC: EDUNIT# 21:15 → ER 21:17
DX: S06.0X0A Concussion without loss of consciousness, initial encounter (principal); R40.2142 Coma scale, eyes open, spontaneous, at arrival to emergency department; R40.2252 Coma scale, best verbal response, oriented, at arrival to emergency department; R40.2362 Coma scale, best motor response, obeys commands, at arrival to emergency department; Z88.5 Allergy status to narcotic agent; Z88.8 Allergy status to other drugs, medicaments and biological substances; Z87.891 Personal history of nicotine dependence; Z98.51 Tubal ligation status; Z80.8 Family history of malignant neoplasm of other organs or systems; W01.198A Fall on same level from slipping, tripping and stumbling with subsequent striking against other object, initial encounter; Y93.89 Activity, other specified
CPT/HCPCS: 70450; 72125

== ENCOUNTER → 2021-07-23 | Outpatient (CLI) | payer MEDICAID ==
[~2021-07-23] MED LIST changes: +ONDA8TAB13 PO; -OXYC-465 PO; +OXYC-556 PO
[2021-07-23 15:03] LABS: BASOPHILS % (AUTO) 0 % (0-10); EOSINOPHILS # (AUTO) 0.1 10^3/uL (0.0-0.3); EOSINOPHILS % (AUTO) 1 % (0-10); HEMATOCRIT 40 % (35-52); LYMPHOCYTES % (AUTO) 29 % (12-44); MEAN CORPUSCULAR HEMOGLOBIN 29 pg (25-34); MEAN CORPUSCULAR HGB CONC 33 g/dL (32-36); MEAN CORPUSCULAR VOLUME 87 fL (80-99); MEAN PLATELET VOLUME 9.8 fL (9.0-12.2); MONOCYTES # (AUTO) 0.5 X 10^3 (0.0-1.0); MONOCYTES % (AUTO) 5 % (0-12); NEUTROPHILS # (AUTO) 6.5 X 10^3 (1.8-7.8); NEUTROPHILS % (AUTO) 63 % (42-75); PLATELET COUNT 279 10^3/uL (130-400); WHITE BLOOD COUNT 10.2 10^3/uL (4.3-11.0)
[2021-07-23 15:05] LABS: ALBUMIN 3.8 GM/DL (3.2-4.5); POTASSIUM 3.4 MMOL/L (3.6-5.0)
[2021-07-23 15:07] LABS: TOTAL PROTEIN 6.6 GM/DL (6.4-8.2)
[2021-07-23 15:09] LABS: BILIRUBIN,TOTAL 0.2 MG/DL (0.1-1.0)
[2021-07-23 15:11] LABS: CREATININE SERUM 0.72 MG/DL (0.60-1.30)
[2021-07-23 15:35] LABS: FREE T4 (FREE THYROXINE) 0.89 NG/DL (0.70-1.48)
== END ==
LOC: LAB 14:32
PROVIDERS: ATTEND Nurse Practitioner Family
DX: L29.8 Other pruritus (principal); L85.3 Xerosis cutis; Z91.014 Allergy to mammalian meats
CPT/HCPCS: 36415; 80053; 82728; 83540; 83550; 84439; 84443; 85025; 86038; 86039; 86705; 86706; 86707; 87340